=== PATIENT | female | born 1995 | race Caucasian/White ===

== ENCOUNTER 2022-08-10 02:50 | Emergency (ER) | payer SELFPAY ==
[~2022-08-10] VITALS: Ht 165.1 cm; Wt 83.9 kg
[2022-08-10 02:57] VITALS: BP 140/83
--- NOTE | 2022-08-10 02:57 | NUR ---
TO CHAIR B AMBULATORY,FOR PREBOOK
--- NOTE | 2022-08-10 03:20 | NUR ---
Dr. Encarnacion examining patient.
--- NOTE | 2022-08-10 03:31 | NUR ---
PATIENT BIB [facility] DEPT. PATIENT EXAMINED BY DR. ABAD. PATIENT MEDICALLY CLEARED AND RELEASED IN CUSTODY IN STABLE CONDITION. ORIGINAL PRE-BOOK FORM GIVEN TO OFFICER [place]. SANJUANITA #[id number]
== END 2022-08-10 03:31 ==
LOC: MED 02:50
DX: Z02.89 Encounter for other administrative examinations (principal)
CPT/HCPCS: 99283